=== PATIENT | male | born 1940 | race Two or more races ===

== ENCOUNTER 2018-01-11 18:08 | Inpatient (IN) | payer OTHER, MEDICAID ==
[~2018-01-11] VITALS: Ht 162.6 cm; Wt 65.7 kg
[2018-01-11 19:06] LABS: Basophils # (auto) 0.1 uL; Eosinophils # (auto) 0.1 uL; Hematocrit 41.1 % (41.0-53.0); Hemoglobin 14.1 g/dL (13.5-17.5); Lymphocytes # (auto) 1.8 uL; Lymphocytes % (auto) 20.9 % (10.0-50.0); Mean Corpuscular Hemoglobin 32.5 pg (28.0-32.0); Mean Corpuscular Hgb Conc. 34.4 g/dL (32.0-36.0); Mean Corpuscular Volume 94.3 fL (80.0-100.0); Monocytes # (auto) 0.9 uL; Monocytes % (auto) 10.7 % (0.0-12.0); Neutrophils # (auto) 5.8 uL; Neutrophils % (auto) 66.4 % (37.0-80.0); Nucleated Red Blood Cells % 0.1 %; Platelet Count (auto) 273 10^3/uL (140-450); Red Blood Cells 4.36 10^6/uL (4.5-5.90); Red Cell Distribution Width 13.5 % (11.8-14.3); White Blood Cell 8.7 10^3/uL (4.4-10.8)
[2018-01-11 19:16] LABS: Alanine Aminotransferase 19 U/L (16-61); Albumin 3.7 g/dL (3.4-5.0); Anion Gap 9 (5-15); Aspartate Aminotransferase 18 U/L (15-37); BUN/Creatinine Ratio 12.6; Blood Urea Nitrogen 12 mg/dL (7-18); Calcium 9.2 mg/dL (8.5-10.1); Carbon Dioxide 27 mmol/L (21-32); Chloride 102 mmol/L (98-107); GFR African American 99 mL/min; GFR Non-African American 82 mL/min; Glucose 113 mg/dL (74-106); Potassium 3.6 mmol/L (3.5-5.1); Sodium 138 mmol/L (136-145)
[2018-01-11 19:21] LABS: Alkaline Phosphatase 140 U/L (45-117); Bilirubin, Total 0.5 mg/dL (0.2-1.0); Total Protein 8.4 g/dL (6.4-8.2)
[2018-01-11] MEDS ORDERED: ASPirin 81 mg TAB PO ONE (21:30)
[2018-01-11] MEDS ORDERED: NITROGLYCERIN 0.2MG/HR TOPICAL PATCH TD ONE (21:30)
[2018-01-11] MEDS ORDERED: LORazepam 0.5 MG TAB PO ONE (21:30)
[2018-01-11] MEDS ORDERED: ALUM & MAG HYDROX-SIMETH LIQ(MAALOX) 30 ML PO ONE (21:30)
[2018-01-11] MEDS ORDERED: ATORVASTATIN 20 MG TAB PO ONE (22:45)
[2018-01-11] MEDS ORDERED: DEXTROSE (50%) 50ML SYRG IV PRN (22:45)
[2018-01-11] MEDS ORDERED: ACETAMINOPHEN 325 MG TAB PO PRN (22:45)
[2018-01-11] MEDS ORDERED: ONDANSETRON HCL 4 MG/2 ML VIAL IV PRN (22:45)
[2018-01-11] MEDS ORDERED: DOCUSATE SOD 100 MG CAP PO PRN (22:45)
[2018-01-11] MEDS ORDERED: MORPHINE SULFATE 4 MG/ML SYR/VIAL IV PRN (22:45)
[2018-01-11] MEDS ORDERED: TEMAZEPAM 15 MG CAP PO PRN (22:45)
[2018-01-11] MEDS ORDERED: NITROGLYCERIN 0.4 MG SL TAB SL PRN (22:45)
[2018-01-12] MEDS: ACCU-CHEK COMFORT CURVE STRIP VI SCH ×3 (00:13→11:18)
[2018-01-12 03:20] LABS: Urine WBC None Seen /hpf (0 - 3)
[2018-01-12 04:03] LABS: Urine Bacteria NONE SEEN /hpf (None Seen); Urine Blood Negative /uL (Negative); Urine Specific Gravity 1.008 (1.001-1.035)
[2018-01-12] MEDS: InsuLIN REG 1unit/0.01ml Soln (100units/ml) SC SCH ×3 (05:55→11:17)
[2018-01-12 07:02] LABS: Basophils # (auto) 0 uL; Basophils % (auto) 0.7 % (0.0-2.0); Eosinophils # (auto) 0.2 uL; Eosinophils % (auto) 2.3 % (0.0-7.0); Hematocrit 40.3 % (41.0-53.0); Hemoglobin 13.5 g/dL (13.5-17.5); Lymphocytes # (auto) 1.8 uL; Lymphocytes % (auto) 26.8 % (10.0-50.0); Mean Corpuscular Hemoglobin 31.6 pg (28.0-32.0); Mean Corpuscular Hgb Conc. 33.6 g/dL (32.0-36.0); Mean Corpuscular Volume 94.2 fL (80.0-100.0); Monocytes # (auto) 0.8 uL; Monocytes % (auto) 11.7 % (0.0-12.0); Neutrophils # (auto) 3.9 uL; Neutrophils % (auto) 58.5 % (37.0-80.0); Nucleated Red Blood Cells % 0.1 %; Platelet Count (auto) 262 10^3/uL (140-450); Red Blood Cells 4.28 10^6/uL (4.5-5.90); Red Cell Distribution Width 13.7 % (11.8-14.3); White Blood Cell 6.7 10^3/uL (4.4-10.8)
[2018-01-12 07:34] LABS: Albumin 3.3 g/dL (3.4-5.0); BUN/Creatinine Ratio 15.5; Calcium 9.2 mg/dL (8.5-10.1); Potassium 3.9 mmol/L (3.5-5.1)
[2018-01-12 07:36] LABS: Bilirubin, Total 0.7 mg/dL (0.2-1.0); Total Protein 7.5 g/dL (6.4-8.2)
[2018-01-12] MEDS: ENOXAPARIN SOD 40 MG/0.4 ML SYRINGE SC SCH (09:36)
[2018-01-12] MEDS: FAMOTIDINE 20 MG TAB PO SCH ×2 (09:36→21:33)
[2018-01-12] MEDS ORDERED: ASPirin 81 mg TAB PO SCH (10:00)
[2018-01-12 11:53] LABS: Alcohol, Urine < 3.0 mg/dL (0-5); Amphetamine Screen, Urine NEGATIVE (NEGATIVE); Barbiturate Scree,Urine NEGATIVE (NEGATIVE); Benzodiazephine Screen, Urine NEGATIVE (NEGATIVE); Cannabinoid Screen, Urine NEGATIVE (NEGATIVE); Cocaine Screen, Urine NEGATIVE (NEGATIVE); Opiate Scree,Urine NEGATIVE (NEGATIVE); Phencyclidine Screen, Urine NEGATIVE (NEGATIVE)
[2018-01-12 20:22] VITALS: BP 113/75
[2018-01-12] MEDS: TAMSULOSIN HYDROCHLORIDE 0.4 MG CAP PO SCH (21:32)
[2018-01-12] MEDS: ATORVASTATIN 20 MG TAB PO SCH (21:33)
[2018-01-12] MEDS: HYDROcodone-ACET 5/325MG TAB PO PRN (21:33)
[2018-01-12 22:31] VITALS: BP 140/75
[2018-01-13 05:26] VITALS: BP 100/53
[2018-01-13 06:30] LABS: Cholesterol 134 mg/dL (< 200); HDL Cholesterol 37 mg/dL (40-59); LDL Cholesterol 95 mg/dL (< 100); Triglycerides 80 mg/dL (< 150)
[2018-01-13 09:00] VITALS: BP 117/70
[2018-01-13] MEDS: HYDROcodone-ACET 5/325MG TAB PO PRN ×2 (11:30→19:31)
[2018-01-13] MEDS: ENOXAPARIN SOD 40 MG/0.4 ML SYRINGE SC SCH (11:31)
[2018-01-13] MEDS: FAMOTIDINE 20 MG TAB PO SCH ×2 (11:31→21:16)
[2018-01-13 13:00] VITALS: BP 151/90
[2018-01-13 16:32] LABS: Urine WBC None Seen /hpf (0 - 3)
[2018-01-13 16:58] LABS: Urine Bacteria NONE SEEN /hpf (None Seen); Urine Blood Negative /uL (Negative); Urine Specific Gravity 1.008 (1.001-1.035)
[2018-01-13 17:19] VITALS: BP 118/62
[2018-01-13] MEDS: TAMSULOSIN HYDROCHLORIDE 0.4 MG CAP PO SCH (18:30)
[2018-01-13] MEDS: ATORVASTATIN 20 MG TAB PO SCH (21:16)
[2018-01-14 00:06] VITALS: BP 122/78
[2018-01-14 05:03] VITALS: BP 120/71
[2018-01-14] MEDS ORDERED: SUCR1TAB PO (08:48)
[2018-01-14] MEDS ORDERED: ATOR20TA50 PO (08:48)
[2018-01-14] MEDS ORDERED: BENA10TA9 PO (08:48)
[2018-01-14] MEDS ORDERED: METF-370 PO (08:48)
[2018-01-14] MEDS ORDERED: OMEP20CA74 PO (08:48)
[2018-01-14] MEDS ORDERED: CHOL20007 PO (08:48)
[2018-01-14 09:00] VITALS: BP 122/71
[2018-01-14] MEDS: FAMOTIDINE 20 MG TAB PO SCH (09:10)
[2018-01-14] MEDS: ENOXAPARIN SOD 40 MG/0.4 ML SYRINGE SC SCH (09:11)
[2018-01-14] MEDS: HYDROcodone-ACET 5/325MG TAB PO PRN (09:12)
[2018-01-14] MEDS ORDERED: ASPI81CH43 PO (09:41)
[2018-01-14] MEDS ORDERED: TAM04C PO (09:41)
[2018-01-14] MEDS ORDERED: CEPH-37 PO (09:41)
[2018-01-14] MEDS ORDERED: ASPirin 81 mg TAB PO SCH (10:00)
== END 2018-01-14 11:39 | disposition home or self-care (01) | DRG 206 ==
LOC: ER 18:08 → TELE 18:09 → TELE-CENTR 01-12 16:31
PROVIDERS: ADMIT Nurse Practitioner; ATTEND Internal Medicine
DX: M94.0 Chondrocostal junction syndrome [Tietze] (principal); N12 Tubulo-interstitial nephritis, not specified as acute or chronic; E11.9 Type 2 diabetes mellitus without complications; I20.9 Angina pectoris, unspecified; E78.5 Hyperlipidemia, unspecified; I10 Essential (primary) hypertension; K21.9 Gastro-esophageal reflux disease without esophagitis; I49.3 Ventricular premature depolarization; N40.0 Benign prostatic hyperplasia without lower urinary tract symptoms; Z87.891 Personal history of nicotine dependence
CPT/HCPCS: 36415; 71046; 74176; 80053; 80061; 80307; 81001; 82962; 83036; 83880; 84484; 85025; 87086; 93005; 93306; 94761; 96372

== ENCOUNTER → 2019-01-14 | Outpatient (CLI) | payer OTHER, MEDICAID ==
[~2019-01-14] MED LIST: ASPI81CH43 PO; ATOR20TA50 PO; BENA10TA9 PO; CEPH-37 PO; CHOL20007 PO; METF-370 PO; OMEP20CA74 PO; SUCR1TAB PO; TAM04C PO
== END | disposition home or self-care (01) ==
LOC: Rad HDHVI 14:39
PROVIDERS: ATTEND Internal Medicine Cardiovascular Disease
DX: I10 Essential (primary) hypertension (principal); R07.89 Other chest pain
CPT/HCPCS: 93306

== ENCOUNTER → 2019-02-17 | Outpatient (CLI) | payer OTHER, MEDICAID ==
[~2019-02-17] VITALS: Ht 165.1 cm; Wt 66.7 kg
[2019-02-17 15:51] LABS: Basophils # (auto) 0 uL; Basophils % (auto) 0.5 % (0.0-2.0); Eosinophils # (auto) 0.1 uL; Eosinophils % (auto) 2.1 % (0.0-7.0); Hematocrit 43.9 % (41.0-53.0); Hemoglobin 14.5 g/dL (13.5-17.5); Lymphocytes # (auto) 1.7 uL; Lymphocytes % (auto) 36.2 % (10.0-50.0); Mean Corpuscular Hemoglobin 32.1 pg (28.0-32.0); Monocytes # (auto) 0.4 uL; Monocytes % (auto) 9.3 % (0.0-12.0); Neutrophils # (auto) 2.5 uL; Neutrophils % (auto) 51.9 % (37.0-80.0); Nucleated Red Blood Cells % 0.9 %; Platelet Count (auto) 224 10^3/uL (140-450); Red Blood Cells 4.52 10^6/uL (4.5-5.90); White Blood Cell 4.8 10^3/uL (4.4-10.8)
[2019-02-17 15:55] LABS: Urine Blood Negative /uL (Negative); Urine Specific Gravity 1.014 (1.001-1.035)
[2019-02-17 16:02] LABS: Albumin 4.1 g/dL (3.4-5.0); Calcium 9.3 mg/dL (8.5-10.1)
[2019-02-17 16:04] LABS: Bilirubin, Total 0.4 mg/dL (0.2-1.0); Total Protein 7.7 g/dL (6.4-8.2)
[2019-02-17 16:09] LABS: Free T4 (Free Thyroxine) 1.12 ng/dL (0.89-1.76)
[2019-02-17 16:10] LABS: Prostate Specific Antigen 0.97 ng/mL (0.0-4.0)
[2019-02-17 16:17] LABS: Potassium 3.8 mmol/L (3.5-5.1)
[2019-02-17 20:41] LABS: BUN/Creatinine Ratio 11.9
== END | disposition home or self-care (01) ==
LOC: Rad HDHVI 09:31
PROVIDERS: ATTEND Internal Medicine
DX: K44.9 Diaphragmatic hernia without obstruction or gangrene (principal); N39.0 Urinary tract infection, site not specified; E03.9 Hypothyroidism, unspecified; E11.9 Type 2 diabetes mellitus without complications; E55.9 Vitamin D deficiency, unspecified; C61 Malignant neoplasm of prostate; D51.9 Vitamin B12 deficiency anemia, unspecified; E29.1 Testicular hypofunction; R07.89 Other chest pain; K21.9 Gastro-esophageal reflux disease without esophagitis; I10 Essential (primary) hypertension
CPT/HCPCS: 36415; 78452; 80053; 80061; 81003; 82306; 82607; 83036; 84153; 84403; 84439; 84443; 85025; 87086; 93017; 96374; A9500

== ENCOUNTER 2019-04-06 11:36 | Emergency (ER) | payer OTHER, MEDICAID ==
[~2019-04-06] VITALS: Ht 165.1 cm; Wt 65.3 kg
[2019-04-06] MEDS ORDERED: SODIUM CHLORIDE 0.9% 1,000 ML IV ONE (12:08)
[2019-04-06 12:34] LABS: Basophils # (auto) 0.1 uL; Basophils % (auto) 0.9 % (0.0-2.0); Eosinophils # (auto) 0.2 uL; Eosinophils % (auto) 2.1 % (0.0-7.0); Hematocrit 38.7 % (41.0-53.0); Hemoglobin 13.4 g/dL (13.5-17.5); Lymphocytes # (auto) 2.1 uL; Mean Corpuscular Hemoglobin 32.3 pg (28.0-32.0); Mean Corpuscular Hgb Conc. 34.6 g/dL (32.0-36.0); Mean Corpuscular Volume 93.3 fL (80.0-100.0); Monocytes % (auto) 10.6 % (0.0-12.0); Neutrophils # (auto) 6.3 uL; Neutrophils % (auto) 64.4 % (37.0-80.0); Platelet Count (auto) 406 10^3/uL (140-450); Red Blood Cells 4.15 10^6/uL (4.5-5.90); Red Cell Distribution Width 13.4 % (11.8-14.3); White Blood Cell 9.8 10^3/uL (4.4-10.8)
[2019-04-06 12:44] LABS: Albumin 3.2 g/dL (3.4-5.0); BUN/Creatinine Ratio 12.7; Potassium 4.1 mmol/L (3.5-5.1)
[2019-04-06 12:47] LABS: Bilirubin, Total 0.4 mg/dL (0.2-1.0); Total Protein 8.2 g/dL (6.4-8.2)
[2019-04-06 13:14] LABS: Urine WBC None Seen /hpf (0 - 3)
[2019-04-06 13:41] LABS: Urine Bacteria NONE SEEN /hpf (None Seen); Urine Blood Negative /uL (Negative); Urine Specific Gravity 1.007 (1.001-1.035)
[2019-04-06 14:30] VITALS: BP 140/82
== END 2019-04-06 15:16 | disposition home or self-care (01) ==
LOC: ER 11:40
DX: K44.1 Diaphragmatic hernia with gangrene (principal); N40.0 Benign prostatic hyperplasia without lower urinary tract symptoms; M19.90 Unspecified osteoarthritis, unspecified site; E46 Unspecified protein-calorie malnutrition; E11.9 Type 2 diabetes mellitus without complications; K21.9 Gastro-esophageal reflux disease without esophagitis; E78.5 Hyperlipidemia, unspecified; I10 Essential (primary) hypertension; Z68.24 Body mass index [BMI] 24.0-24.9, adult; Z79.82 Long term (current) use of aspirin; Z79.84 Long term (current) use of oral hypoglycemic drugs; Z79.899 Other long term (current) drug therapy
CPT/HCPCS: 36415; 71046; 74176; 80053; 81001; 83036; 83735; 85025; 99284; J7030

== ENCOUNTER → 2020-05-23 | Outpatient (CLI) | payer OTHER, MEDICAID ==
[~2020-05-23] MED LIST changes: +BENA10TA10 PO; +DUTA0.5C11 PO; +METO-517 PO; -SUCR1TAB PO
== END | disposition home or self-care (01) ==
LOC: Rad HDHVI 08:02
PROVIDERS: ATTEND Internal Medicine Cardiovascular Disease
DX: I08.0 Rheumatic disorders of both mitral and aortic valves (principal); I25.10 Atherosclerotic heart disease of native coronary artery without angina pectoris; I10 Essential (primary) hypertension
CPT/HCPCS: 93306

== ENCOUNTER → 2020-05-25 | Outpatient (CLI) | payer OTHER, MEDICAID ==
[~2020-05-25] VITALS: Ht 165.1 cm; Wt 61.2 kg
== END | disposition home or self-care (01) ==
LOC: Rad HDHVI 08:18
PROVIDERS: ATTEND Internal Medicine Cardiovascular Disease
DX: I10 Essential (primary) hypertension (principal); E78.00 Pure hypercholesterolemia, unspecified; E11.9 Type 2 diabetes mellitus without complications
CPT/HCPCS: 78452; 93017; 96374; A9500

== ENCOUNTER → 2021-06-24 | Outpatient (CLI) | payer OTHER, MEDICAID ==
[~2021-06-24] VITALS: Ht 165.1 cm; Wt 63.5 kg
[~2021-06-24] MED LIST changes: -BENA10TA10 PO; +BENA10TA14 PO
== END | disposition home or self-care (01) ==
LOC: Rad HDHVI 07:53
PROVIDERS: ATTEND Internal Medicine
DX: I25.10 Atherosclerotic heart disease of native coronary artery without angina pectoris (principal); I10 Essential (primary) hypertension; E78.5 Hyperlipidemia, unspecified; E11.9 Type 2 diabetes mellitus without complications; R07.9 Chest pain, unspecified
CPT/HCPCS: 78452; 93017; 96374; A9500

== ENCOUNTER 2023-08-28 11:05 | Inpatient (IN) | payer OTHER, MEDICAID ==
[~2023-08-28] VITALS: Ht 162.6 cm; Wt 65.8 kg
[~2023-08-28 11:05] MED LIST changes: +BENA-19 PO; -BENA10TA14 PO; +BENA10TA16 PO; -BENA10TA9 PO; -TAM04C PO; +TAMS-35 PO
[2023-08-28] MEDS ORDERED: MORPHINE SULFATE 4 MG/ML SYR/VIAL IV ONE (11:30)
[2023-08-28] MEDS ORDERED: ONDANSETRON HCL 4 MG/2 ML VIAL IV ONE (11:30)
[2023-08-28 11:55] LABS: Basophils # (auto) 0.1 10 ^3/uL (0-0.2); Basophils % (auto) 1.1 % (0.0-2.0); Eosinophils # (auto) 0.1 10 ^3/uL (0-0.8); Hematocrit 44.4 % (41.0-53.0); Hemoglobin 14.8 g/dL (13.5-17.5); Lymphocytes # (auto) 1.8 10 ^3/uL (0.4-5.4); Lymphocytes % (auto) 32.6 % (10.0-50.0); Mean Corpuscular Hemoglobin 31.9 pg (28.0-32.0); Mean Corpuscular Hgb Conc. 33.3 g/dL (32.0-36.0); Mean Corpuscular Volume 95.7 fL (80.0-100.0); Monocytes # (auto) 0.5 10 ^3/uL (0-1.3); Monocytes % (auto) 8.1 % (0.0-12.0); Neutrophils # (auto) 3.2 10 ^3/uL (1.6-8.6); Neutrophils % (auto) 56.2 % (37.0-80.0); Nucleated Red Blood Cells % 0.1 %; Red Blood Cells 4.64 10^6/uL (4.5-5.90); Red Cell Distribution Width 13.7 % (11.8-14.3); White Blood Cell 5.6 10^3/uL (4.4-10.8)
[2023-08-28 12:01] LABS: INR 1.01 (0.9-1.15); Partial Thromboplastin Time 28.4 SEC (24.5-34.5); Prothrombin Time 10.6 sec (9.3-11.8)
[2023-08-28 12:34] LABS: Alanine Aminotransferase 22 U/L (7-40); Albumin 4.4 g/dL (3.2-4.8); Alkaline Phosphatase 92 U/L (46-116); Anion Gap 6 (5-15); Aspartate Aminotransferase 18 U/L (13-40); BUN/Creatinine Ratio 17.8 (10.0-20.0); Bilirubin, Total 0.5 mg/dL (0.2-1.0); Blood Urea Nitrogen 16 mg/dL (9-23); Calcium 9.6 mg/dL (8.5-10.1); Carbon Dioxide 29 mmol/L (20-30); Chloride 107 mmol/L (98-107); Glucose 122 mg/dL (74-106); Potassium 3.9 mmol/L (3.5-5.1); Sodium 142 mmol/L (136-145); Total Protein 7.2 g/dL (5.7-8.2)
[2023-08-28] MEDS ORDERED: DUTASTERIDE 0.5 MG PO SCH ×2 (15:00)
[2023-08-28] MEDS ORDERED: ONDANSETRON HCL 4 MG/2 ML VIAL IV PRN (15:15)
[2023-08-28] MEDS ORDERED: ACETAMINOPHEN 325 MG TAB PO PRN (15:15)
[2023-08-28] MEDS ORDERED: MORPHINE SULFATE 4 MG/ML SYR/VIAL IV PRN (15:15)
[2023-08-28] MEDS ORDERED: NITROGLYCERIN 0.4 MG SL TAB SL PRN (15:15)
[2023-08-28 17:03] LABS: INR 1.04 (0.9-1.15); Prothrombin Time 10.9 sec (9.3-11.8)
[2023-08-28] MEDS ORDERED: hydrALAZINE HCL 20 MG/ML VL IV PRN (17:30)
[2023-08-28] MEDS ORDERED: TAMSULOSIN HYDROCHLORIDE 0.4 MG CAP PO SCH (18:00)
[2023-08-28 21:27] VITALS: PULSE 63; O2SAT 98
[2023-08-28] MEDS: BENAZEPRIL HCL 10 MG TAB PO SCH (23:06)
[2023-08-28] MEDS: TAMSULOSIN HYDROCHLORIDE 0.4 MG CAP PO SCH (23:06)
[2023-08-28 23:52] VITALS: BP 129/70; PULSE 69; RESP 18; TEMP 98.3; O2SAT 96
[2023-08-29] VITALS (7 sets, daily range): BP systolic 110–131; BP diastolic 56–70; PULSE 63–71; RESP 17–19; TEMP 97.4–98.3; O2SAT 95–97
[2023-08-29 06:24] LABS: Basophils # (auto) 0.1 10 ^3/uL (0-0.2); Basophils % (auto) 1.1 % (0.0-2.0); Eosinophils # (auto) 0.2 10 ^3/uL (0-0.8); Eosinophils % (auto) 2.3 % (0.0-7.0); Hematocrit 42.7 % (41.0-53.0); Hemoglobin 14.4 g/dL (13.5-17.5); Lymphocytes # (auto) 2.9 10 ^3/uL (0.4-5.4); Lymphocytes % (auto) 34.6 % (10.0-50.0); Mean Corpuscular Hemoglobin 32.3 pg (28.0-32.0); Mean Corpuscular Hgb Conc. 33.7 g/dL (32.0-36.0); Mean Corpuscular Volume 95.7 fL (80.0-100.0); Monocytes # (auto) 0.7 10 ^3/uL (0-1.3); Monocytes % (auto) 8.4 % (0.0-12.0); Neutrophils # (auto) 4.4 10 ^3/uL (1.6-8.6); Neutrophils % (auto) 53.6 % (37.0-80.0); Red Blood Cells 4.46 10^6/uL (4.5-5.90); Red Cell Distribution Width 13.8 % (11.8-14.3); White Blood Cell 8.3 10^3/uL (4.4-10.8)
[2023-08-29 06:39] LABS: Alanine Aminotransferase 18 U/L (7-40); Albumin 4.2 g/dL (3.2-4.8); Alkaline Phosphatase 87 U/L (46-116); Anion Gap 7 (5-15); Aspartate Aminotransferase 21 U/L (13-40); Blood Urea Nitrogen 8 mg/dL (9-23); Calcium 9.3 mg/dL (8.7-10.4); Carbon Dioxide 26 mmol/L (20-30); Chloride 105 mmol/L (98-107); Glucose 120 mg/dL (74-106); Potassium 3.9 mmol/L (3.5-5.1); Sodium 138 mmol/L (136-145)
[2023-08-29 06:40] LABS: Bilirubin, Total 0.8 mg/dL (0.2-1.0)
[2023-08-29 07:03] LABS: BUN/Creatinine Ratio 9.3 (10.0-20.0)
[2023-08-29] MEDS: BENAZEPRIL HCL 10 MG TAB PO SCH (09:45)
[2023-08-29] MEDS ORDERED: ASPirin 81 mg TAB PO SCH ×2 (10:00)
[2023-08-29] MEDS ORDERED: CHOLECALCIFEROL (VITD3) 2,000 UNIT CAP/TAB PO SCH (10:00)
[2023-08-29] MEDS ORDERED: ATORVASTATIN 20 MG TAB PO SCH (10:00)
[2023-08-29] MEDS ORDERED: DOCUSATE SOD 100 MG CAP PO SCH (10:00)
[2023-08-29] MEDS ORDERED: PANTOPRAZOLE 40 MG TAB PO SCH (10:00)
[2023-08-29] MEDS ORDERED: DUTASTERIDE 0.5 MG PO SCH (10:00)
[2023-08-29] MEDS: TAMSULOSIN HYDROCHLORIDE 0.4 MG CAP PO SCH (17:22)
[2023-08-31 10:55] LABS: Hepatitis B Surface Antigen Negative (Negative)
[2023-08-31 11:17] LABS: Hepatitis C Antibody Negative (Negative)
== END 2023-08-29 18:15 | disposition home or self-care (01) | DRG 392 ==
LOC: ER 11:05 → TELE 15:07 → TELE-WESTW 22:15
PROVIDERS: ADMIT Nurse Practitioner Family; ATTEND Nurse Practitioner Family
DX: K21.9 Gastro-esophageal reflux disease without esophagitis (principal); E78.5 Hyperlipidemia, unspecified; I10 Essential (primary) hypertension; K27.9 Peptic ulcer, site unspecified, unspecified as acute or chronic, without hemorrhage or perforation; N40.0 Benign prostatic hyperplasia without lower urinary tract symptoms; R73.03 Prediabetes; Z82.49 Family history of ischemic heart disease and other diseases of the circulatory system; Z83.3 Family history of diabetes mellitus; Z86.73 Personal history of transient ischemic attack (TIA), and cerebral infarction without residual deficits; Z87.11 Personal history of peptic ulcer disease; Z87.891 Personal history of nicotine dependence
CPT/HCPCS: 36415; 71045; 80053; 83735; 83880; 84484; 85025; 85379; 85610; 85730; 86803; 87340; 93005; 93306; G0378; J2405

== ENCOUNTER 2024-02-02 09:35 | Emergency (ER) | payer OTHER, MEDICAID ==
[~2024-02-02] VITALS: Ht 162.6 cm; Wt 68.0 kg
[~2024-02-02 09:35] MED LIST changes: -BENA-19 PO; +BENA10TA90 PO; -METO-517 PO; +METO10TA4 PO
[2024-02-02 10:38] VITALS: BP 159/93; PULSE 85; RESP 18; O2SAT 97
[2024-02-02] MEDS: PROCHLORPERAZINE EDISYLATE 5 MG/ML 2ML VIAL IV ONE (12:00)
[2024-02-02 12:13] VITALS: TEMP 99.3
[2024-02-02] MEDS: ACETAMINOPHEN 500 MG TAB PO ONE (12:13)
[2024-02-02] MEDS: SODIUM CHLORIDE 0.9% 1,000 ML IV ONE (12:13)
[2024-02-02] MEDS: DexAMETHasone SOD PHOS 10MG/1ML VIAL INJ IV ONE (13:39)
[2024-02-02] MEDS ORDERED: MAGN400T40 PO (13:51)
== END 2024-02-02 14:02 | disposition home or self-care (01) ==
LOC: ER 09:35
DX: R51.9 Headache, unspecified (principal); K21.9 Gastro-esophageal reflux disease without esophagitis; E78.5 Hyperlipidemia, unspecified; I10 Essential (primary) hypertension; Z86.73 Personal history of transient ischemic attack (TIA), and cerebral infarction without residual deficits
CPT/HCPCS: 70450; 96361; 96374; 96375; 99285; J0780; J1100; J7030

== ENCOUNTER 2024-04-29 08:12 | Emergency (ER) | payer OTHER, MEDICAID ==
[~2024-04-29] VITALS: Ht 160 cm; Wt 66.5 kg
[~2024-04-29 08:12] MED LIST changes: +MAGN400T40 PO
[2024-04-29 08:56] VITALS: BP 171/78; PULSE 75; RESP 14; TEMP 98.1; O2SAT 97
[2024-04-29] MEDS ORDERED: MELO7.5T7 PO (09:28)
[2024-04-29] MEDS ORDERED: CEPH500C PO (09:28)
[2024-04-29] MEDS ORDERED: ACET-1080 PO (09:28)
== END 2024-04-29 09:31 | disposition home or self-care (01) ==
LOC: ER 08:12
DX: L03.032 Cellulitis of left toe (principal); M10.9 Gout, unspecified; K21.9 Gastro-esophageal reflux disease without esophagitis; E78.5 Hyperlipidemia, unspecified; I10 Essential (primary) hypertension; Z86.73 Personal history of transient ischemic attack (TIA), and cerebral infarction without residual deficits; Z79.899 Other long term (current) drug therapy
CPT/HCPCS: 73630